=== PATIENT | male | born 1955 | race African-American/Black ===

== ENCOUNTER 2021-01-16 08:55 | Inpatient (IN) | payer MEDICARE ==
[2021-01-16] VITALS (7 sets, daily range): BP systolic 126–147; BP diastolic 51–58; BMI 25.1
[~2021-01-16] VITALS: Ht 180.3 cm; Wt 81.8 kg
[~2021-01-16 08:55] MED LIST: HTN MED?; [UNRECOGNIZED DRUG - REMARK]
[2021-01-16 09:27] LABS: BASOPHILS 0.1 % (0-2); EOSINOPHILS 0 % (0-7); HEMATOCRIT 26.8 % (42.0-54.0); HEMOGLOBIN 8.4 g/dL (13.5-17.5); IMMATURE GRANULOCYTES 0.1 % (0-5); LYMPHOCYTE ABS# 1.28 10x3/uL (1.32-3.57); LYMPHOCYTES 14.6 % (15-50); MCH 28.4 pg (26.0-34.0); MCHC 31.3 g/dL (31.0-37.0); MCV 90.5 fL (80.0-100.0); MEAN PLATELET VOLUME 10.3 fL (7.4-10.4); MONOCYTES 0.1 % (2-11); NEUTROPHIL ABS# 7.47 10x3/uL (1.78-5.38); NEUTROPHILS 85.1 % (40-80); PLATELET COUNT 308 10x3/uL (130-400); RBC 2.96 10x6/uL (4.20-6.10); RDW 14.9 % (11.5-14.5); WBC 8.8 10x3/uL (4.8-10.8)
[2021-01-16 09:39] LABS: INR 1.06 (0.85-1.17); PROTIME 12.7 SECONDS (11.6-15.0)
[2021-01-16 09:54] LABS: ANION GAP 14.1 mmol/L (8-16); CALCIUM 9.6 mg/dL (8.5-10.1); CARBON DIOXIDE 29.7 mmol/L (21.0-32.0); CREATININE - SERUM 9.6 mg/dL (0.6-1.3); POTASSIUM - SERUM 4.8 mmol/L (3.5-5.1)
--- NOTE | 2021-01-16 10:18 | NUR ---
CALLED CARLOS GRAY WITH DR STATON TO INFORM OF BLOOD SUGAR RESULTS. GOT VM STATING VM BOX FULL, TRY CALL LATER.
--- NOTE | 2021-01-16 10:29 | NUR ---
CALLED TONIA GRAY APRN AND WAS ABLE TO REACH HER. NOTIFIED HER OF PT'S BLOOD SUGAR OF 573. NEW ORDERS RECEIVED TO ADMINISTER HUMALOG INSULIN 15 UNITS SUB Q AND RECHECK BLOOD SUGAR IN 1 HOUR.
[2021-01-16] MEDS ORDERED: GLIMEPIRIDE4 MG PO (10:46)
[2021-01-16] MEDS ORDERED: RENA-VITE TABL0.8 MG PO (10:47)
[2021-01-16] MEDS ORDERED: CYPROHEPTADINE PO (10:47)
[2021-01-16] MEDS ORDERED: CLONIDINE HCL0.3 MG PO (10:48)
[2021-01-16] MEDS ORDERED: NORVASC10 MG PO (10:48)
[2021-01-16] MEDS ORDERED: VITAMIN D10000 UNIT PO (10:48)
[2021-01-16] MEDS ORDERED: TOPROL XL100 MG PO (10:49)
--- NOTE | 2021-01-16 12:09 | NUR ---
attempted to call [facility] DELIA GRAY AT THIS TIME REGARDING BS REDRAW 530. NO ANSWER AT THIS TIME.
--- NOTE | 2021-01-16 12:29 | NUR ---
CALLED TONIA GRAY APRN AND GOT VM STATING UNABLE TO LEAVE A MESSAGE.
--- NOTE | 2021-01-16 15:53 | NUR ---
PT DC INSTRUCTIONS REVIEWED AT THIS TIME, PT VERBALIZES UNDERSTANDING. PT IV REMOVED AT THIS TIME, INTACT, NO REDNESS OR SWELLING NOTED AT SITE.
--- NOTE | 2021-01-16 15:55 | NUR ---
PT LEAVING OPS AT THIS TIME, NAD NOTED.
[2021-01-16 21:46] LABS: BASOPHILS 0.1 % (0-2); EOSINOPHILS 0.1 % (0-7); HEMATOCRIT 24.2 % (42.0-54.0); HEMOGLOBIN 7.6 g/dL (13.5-17.5); IMMATURE GRANULOCYTES 0.4 % (0-5); LYMPHOCYTE ABS# 2.25 10x3/uL (1.32-3.57); LYMPHOCYTES 14.3 % (15-50); MCH 28.3 pg (26.0-34.0); MCHC 31.4 g/dL (31.0-37.0); MEAN PLATELET VOLUME 10.3 fL (7.4-10.4); MONOCYTES 5.5 % (2-11); NEUTROPHILS 79.6 % (40-80); PLATELET COUNT 366 10x3/uL (130-400); RBC 2.69 10x6/uL (4.20-6.10); RDW 14.9 % (11.5-14.5)
[2021-01-16 21:49] LABS: WBC 15.7 10x3/uL (4.8-10.8)
--- NOTE | 2021-01-16 22:01 | NUR ---
CALLED DR ALEXANDER PER ORDER TO RELAY CBC RESULTS, NO ANSWER AWAITING CALL BACK
--- NOTE | 2021-01-16 22:05 | NUR ---
PAGED NEPHROLOGY PER ORDER, AWAITING CALL BACK
[2021-01-16] MEDS ORDERED: CYPROHEPTAD2 MG/5 ML PO (22:11)
[2021-01-16] MEDS ORDERED: GABAPENTIN100 MG PO (22:12)
[2021-01-16 22:18] LABS: ALBUMIN 2.3 g/dL (3.4-5.0); BILIRUBIN - TOTAL 0.62 mg/dL (0.2-1.3); CALCIUM 7.1 mg/dL (8.5-10.1); CARBON DIOXIDE 25.9 mmol/L (21.0-32.0); CREATININE - SERUM 2.1 mg/dL (0.6-1.3); PROTEIN - SERUM 2.3 g/dL (6.4-8.2)
[2021-01-16] MEDS ORDERED: HYDROCODON-ACE1 EA10 PO (22:21)
[2021-01-16 22:43] LABS: ANION GAP 18.6 mmol/L (8-16)
[2021-01-16 22:44] LABS: POTASSIUM - SERUM 3.5 mmol/L (3.5-5.1)
[2021-01-17 00:50] VITALS: Ht 180.3 cm; Wt 81.8 kg
[2021-01-17 01:19] VITALS: BP 131/53
[2021-01-17 05:36] VITALS: BP 139/95
--- NOTE | 2021-01-17 08:00 | NUR ---
ASSESSMENT PER FLOW SHEET. PATIENT IS WITHOUT DISTRESS. LEFT ARM FISTULA DRESSING CDI.BRUIT AND THRILL PRESENT. RIGHT FEMORAL HEMOSPLIT CDI. LEFT IJ HEMOSPLIT CDI. CALL LIGHT IN REACH
[2021-01-17 08:22] VITALS: BP 153/53
--- NOTE | 2021-01-17 09:02 | NUR ---
CALL FROM FAMILY,PASSWORD CONFIRMED.
[2021-01-17 10:02] LABS: ANION GAP 13.8 mmol/L (8-16); CALCIUM 9.5 mg/dL (8.5-10.1); CREATININE - SERUM 10.8 mg/dL (0.6-1.3); POTASSIUM - SERUM 4.8 mmol/L (3.5-5.1)
[2021-01-17 10:06] LABS: BASOPHILS 0.1 % (0-2); EOSINOPHILS 0 % (0-7); HEMATOCRIT 22.8 % (42.0-54.0); IMMATURE GRANULOCYTES 0.2 % (0-5); LYMPHOCYTE ABS# 1.94 10x3/uL (1.32-3.57); LYMPHOCYTES 10.4 % (15-50); MCH 28.2 pg (26.0-34.0); MCHC 31.1 g/dL (31.0-37.0); MCV 90.5 fL (80.0-100.0); MEAN PLATELET VOLUME 10.2 fL (7.4-10.4); MONOCYTES 8.1 % (2-11); NEUTROPHIL ABS# 15.16 10x3/uL (1.78-5.38); NEUTROPHILS 81.2 % (40-80); PLATELET COUNT 324 10x3/uL (130-400); RBC 2.52 10x6/uL (4.20-6.10); RDW 15.5 % (11.5-14.5); WBC 18.7 10x3/uL (4.8-10.8)
[2021-01-17 10:08] LABS: HEMOGLOBIN 7.1 g/dL (13.5-17.5)
--- NOTE | 2021-01-17 11:00 | NUR ---
left unit for dialysis
--- NOTE | 2021-01-17 11:52 | NUR ---
UNIT 1 OF 2 PRBC'S TO DIALYSIS FOR TRANSFUSION.
--- NOTE | 2021-01-17 14:45 | NUR ---
BACK FROM DIALYSIS
--- NOTE | 2021-01-17 15:05 | NUR ---
ASSISTED PROVIDER WITH REMOVAL OF HEMOSPLIT CATHETER FROM LEFT SIDE OF PT, 10mL OF LIDO W/EPI DRAWN UP, PT TOLERATED WELL, PRESSURE APPLIED, COVERED WITH GAUZE AND TEGADERM
--- NOTE | 2021-01-17 15:35 | NUR ---
UNIT 2 OF 2 PRBC'S INITIATED. PATIENT WITHOUT REACTIONS. MONITOR FOR NEEDS.
[2021-01-17 17:05] VITALS: BP 151/31
--- NOTE | 2021-01-17 18:48 | NUR ---
RIDE HERE FOR DC HOME. IV DCD WITH CATH TIP INTACT.DISCHARGE INSTRUCTIONS, STATES UNDERSTANDING.
--- NOTE | 2021-01-17 19:10 | NUR ---
LEFT UNIT VIA WHEELCHAIR FOR TRANSPORT HOME
[2021-01-20 13:13] LABS: HEPATITIS C ANTIBODY <0.1 S/CO RAT (0.0-0.9)
== END 2021-01-17 19:10 | disposition home or self-care (01) | DRG 314 ==
LOC: OBSVTIME → D.OPS 08:55 → D.MS 21:00 → D.OPS 21:00 → D.MS 21:00 → OBSVTIME 21:01 → D.MS 21:11
PROVIDERS: Internal Medicine Nephrology; ADMIT Surgery; ATTEND Surgery
DX: T82.510A Breakdown (mechanical) of surgically created arteriovenous fistula, initial encounter (principal); N18.6 End stage renal disease; Z99.2 Dependence on renal dialysis

== ENCOUNTER 2021-02-17 07:53 | Day surgery (SDC) | payer MEDICARE, OTHER ==
[~2021-02-17] VITALS: Ht 180.3 cm; Wt 77.1 kg
[~2021-02-17 07:53] MED LIST changes: +CLONIDINE HCL0.3 MG PO; +CYPROHEPTAD2 MG/5 ML PO; +CYPROHEPTADINE PO; +GABAPENTIN100 MG PO; +GLIMEPIRIDE4 MG PO; +HYDROCODON-ACE1 EA10 PO; +NORVASC10 MG PO; +RENA-VITE TABL0.8 MG PO; +TOPROL XL100 MG PO; +VITAMIN D10000 UNIT PO
[2021-02-17 08:39] LABS: INR 0.91 (0.85-1.17); PROTIME 11.3 SECONDS (11.6-15.0)
[2021-02-17 08:41] LABS: ANION GAP 9.9 mmol/L (8-16); CALCIUM 9.5 mg/dL (8.5-10.1); CARBON DIOXIDE 30.8 mmol/L (21.0-32.0); CREATININE - SERUM 7.5 mg/dL (0.6-1.3); POTASSIUM - SERUM 4.7 mmol/L (3.5-5.1)
[2021-02-17 08:51] LABS: BASOPHILS 0.3 % (0-2); EOSINOPHILS 2.4 % (0-7); HEMATOCRIT 33.2 % (42.0-54.0); HEMOGLOBIN 10.3 g/dL (13.5-17.5); IMMATURE GRANULOCYTES 0.1 % (0-5); LYMPHOCYTES 14.7 % (15-50); MCH 28.5 pg (26.0-34.0); MCV 91.7 fL (80.0-100.0); MEAN PLATELET VOLUME 9.5 fL (7.4-10.4); MONOCYTES 5.9 % (2-11); NEUTROPHIL ABS# 8.38 10x3/uL (1.78-5.38); NEUTROPHILS 76.6 % (40-80); PLATELET COUNT 374 10x3/uL (130-400); RBC 3.62 10x6/uL (4.20-6.10); RDW 14.3 % (11.5-14.5); WBC 10.9 10x3/uL (4.8-10.8)
[2021-02-17] MEDS ORDERED: PREDNISONE5 MG PO (10:18)
[2021-02-17 10:50] VITALS: Ht 180.3 cm; Wt 77.1 kg
--- NOTE | 2021-02-19 13:35 | OP ---
PATIENT NAME: GUSTAVO JEAN MEDICAL RECORD: [id number] :57 LOCATION:[facility] ADMISSION DATE: SURGEON: MARINA ALEXANDER MD DATE OF OPERATION: 02/17/2021 REFERRING PHYSICIAN: Dr. Lentz PREOPERATIVE DIAGNOSIS: Stenosis, left upper extremity AV graft. POSTOPERATIVE DIAGNOSIS: Stenosis, left upper extremity AV graft. OTHER DIAGNOSES: End-stage renal disease and dependence on hemodialysis. OPERATION PERFORMED: Left arm AV fistulogram with angioplasty and stenting of stenosis at graft vein outflow anastomosis with placement of a 9 x 5 Viabahn stent after unsuccessful balloon angioplasty. SURGEON: Marina Alexander MD ANESTHESIA: Local and MAC. ADDITIONAL OPERATION PERFORMED: Additionally, I removed the right common femoral hemostat tunneled dialysis catheter after the fistulogram. PREOPERATIVE NOTE: Mr. Jean is a very nice 65-year-old -[place] male from [place], [place]. He has dialysis there in [place] 3 days a week. His primary director of customer acquisition is Dr. Lentz. 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 On that day in December, I excised the necrotic eschar and then excluded the AV fistula simply closed primarily the site of eschar excision and I interposed Artegraft between the arterial anastomosis and the proximal cephalic vein. I placed a left internal jugular Hemosplit catheter, which I could not position satisfactorily and so I placed a right common femoral Hemosplit tunneled dialysis catheter, and subsequently the next day, I removed the left internal jugular catheter. The patient has been dialyzing now for several weeks with the new Artegraft and he is brought to the OR today for fistulogram and if that is satisfactory, then removal of the femoral TDC. At his operation, I was concerned for possible venous anastomotic stenosis early on and I had recommended that the patient have a fistulogram at about this time. DESCRIPTION OF PROCEDURE: Under sedation in supine position, the patient was prepped and draped in a sterile manner. Lidocaine 1% without epinephrine was injected into the skin and subcutaneous tissues as needed for anesthesia and the ultrasound-guided access was performed with a micropuncture needle. Contrast injection revealed a wide open arterial anastomosis and wide open graft except for a 70% stenosis at the venous anastomosis. I dilated this with a 8 mm x 80 mm angioplasty balloon, but the result was unsatisfactory with at least 20-30% residual and I elected to go ahead and stent this as I had thought we might need to extended it with a 9 x 5 Viabahn and fully expanded that with balloon inflation and then performed angiography, which demonstrated rapid flow through the fistula and a nice result with the stent in the venous anastomosis. I did note proximally that the cephalic vein has an area of stenosis, but there are a OPERATIVE REPORT [id number] GUSTAVO JEAN number of cephalic vein collaterals and unusual anatomy in the region of the subclavian and internal jugular vein on that side. I did not think there was a need for dilatation of any of these areas, but they should be kept under some kind of surveillance. The hardware was removed and the access site closed with a 4-0 Prolene and a sterile dressing applied. The right groin was exposed and the catheter exit site was anesthetized with lidocaine. Blunt dissection was used to free the subcutaneous cuff and the catheter was simply removed with traction under fluoroscopy without any complications. Hemostasis was obtained by direct pressure and the patient was taken to the recovery room in stable condition. PLAN: The patient will be discharged to home today. I do not think he needs to come back to see me in my office for routine visit, I do think that he should have an angiogram in 6 months to see the results of the stent and the ongoing anatomic changes in the cephalic arch in the subclavian region. TRANSINT:[id number] Voice Confirmation ID: [id number] DOCUMENT ID: [id number] MARINA ALEXANDER MD at 1335 CC: DANIKA LENTZ MD [id number] DICTATION DATE: 02/17/21 1607 MANAGER ENVIRONMENTAL HEALTH: 02/18/21 0000 [facility] 02/17/21 [facility] [address] [place] [address]
== END 2021-02-17 16:55 | disposition home or self-care (01) ==
LOC: D.OPS 07:53
PROVIDERS: ATTEND Surgery
DX: N18.6 End stage renal disease (principal); Z99.2 Dependence on renal dialysis; T82.530A Leakage of surgically created arteriovenous fistula, initial encounter; Z48.812 Encounter for surgical aftercare following surgery on the circulatory system; T82.510A Breakdown (mechanical) of surgically created arteriovenous fistula, initial encounter